=== PATIENT | male | born 1935 | race Two or more races ===

== ENCOUNTER 2019-04-27 19:59 | Inpatient (IN) | payer MEDICARE, OTHER ==
[~2019-04-27] VITALS: Ht 165.1 cm; Wt 78.2 kg
[2019-04-27 21:57] VITALS: BP 139/89
--- NOTE | 2019-04-27 21:57 | NUR ---
TEL RN OPENING NOTES: RECEIVED PT FROM [place] AND IS ON ROOM AIR AND TOLERATING WELL. PT IS CENTRAL AFRICAN SPEAKING ONLY. PT HAS IV ON L FOREARM #20G AND IS PATENT AND INTACT. CURRENTLY H/L. PT PLACED ON BED AND BED KEPT IN LOW, LOCKED POSITION, AND SIDE RAILS X 2UP. PT TO BE PLACED ON TELE BOX. NO SOB NOTED. NO S/S OF DISTRESS.
--- NOTE | 2019-04-27 22:30 | NUR ---
SAMPLER AND TEST PREPARER NOTES: ERIN CORRALATOR AT BEDSIDE.
[2019-04-27] MEDS ORDERED: ATOR10TA PO (22:55)
[2019-04-27] MEDS ORDERED: HYDR12.5 PO (22:55)
[2019-04-27] MEDS ORDERED: PROP10TA10 PO (22:55)
[2019-04-27] MEDS ORDERED: ASPI-869 PO (22:55)
[2019-04-27] MEDS ORDERED: DONE5TAB34 PO (22:55)
[2019-04-27] MEDS ORDERED: MELO-107 PO (22:55)
[2019-04-27] MEDS ORDERED: EZET10TA16 PO (22:55)
[2019-04-27] MEDS ORDERED: OMEP40CA37 PO (22:55)
[2019-04-27] MEDS ORDERED: METO25TA6 PO (22:55)
[2019-04-27] MEDS ORDERED: MECL-102 PO (22:55)
[2019-04-27] MEDS ORDERED: RAMI5CAP66 PO (22:55)
--- NOTE | 2019-04-27 23:50 | NUR ---
PSYCHIATRIC AIDE NOTES: DR. WILD AT BEDSIDE.
[2019-04-28] VITALS (7 sets, daily range): BP systolic 85–135; BP diastolic 49–86
[2019-04-28] MEDS: IV NS 0.9% 1,000 ML IV PRN ×2 (00:25→18:13)
[2019-04-28] MEDS ORDERED: MAG HYDROX/AL HYDROX/SIMETH 30 ML UDC PO PRN (00:30)
[2019-04-28] MEDS ORDERED: ACETAMINOPHEN 325 MG TABLET PO PRN (00:30)
[2019-04-28] MEDS ORDERED: ONDANSETRON HCL/PF 4 MG/2 ML VIAL IVP PRN (00:30)
[2019-04-28] MEDS ORDERED: HYDROCODONE/APAP 5/325MG 1 EACH TABLET PO PRN (00:30)
[2019-04-28] MEDS ORDERED: MAGNESIUM HYDROXIDE 30 ML UDC PO PRN (00:30)
[2019-04-28] MEDS ORDERED: Z GUARD REMEDY 2 OZ OINT TP PRN (00:30)
[2019-04-28 00:43] LABS: BASOPHILS % (AUTO) 0.4 % (0.0-2.0); EOSINOPHILS % (AUTO) 0.9 % (0.0-6.0); HEMATOCRIT 46 % (39-51); HEMOGLOBIN 16.1 g/dL (13.5-17.5); LYMPHOCYTES # (AUTO) 0.9 /CMM (0.8-4.8); LYMPHOCYTES % (AUTO) 10.2 % (20.0-44.0); MEAN CORPUSCULAR HGB CONC 35 g/dl (31.0-36.0); MEAN CORPUSCULAR VOLUME 84 fL (80-96); MONOCYTES # (AUTO) 0.8 /CMM (0.1-1.30); NEUTROPHILS # (AUTO) 6.7 /CMM (1.8-8.9); NEUTROPHILS % (AUTO) 79.5 % (43.0-81.0); PLATELET COUNT (AUTO) 223 /CMM (150-450); RED BLOOD CELL COUNT(AUTO) 5.52 MIL/uL (4.5-6.0); WHITE BLOOD COUNT (AUTO) 8.4 K/uL (4.3-11.0)
[2019-04-28 00:52] LABS: CALCIUM, SERUM 8.5 mg/dL (8.5-10.1); CARBON DIOXIDE 29 mmol/L (21-32); CHLORIDE 103 mmol/L (98-107); CREATININE 0.8 mg/dL (0.6-1.3); GLUCOSE 96 mg/dL (74-106); POTASSIUM 4.2 mmol/L (3.5-5.1); SODIUM SERUM 142 mmol/L (136-145); UREA NITROGEN, BLOOD 23 mg/dL (7-18)
[2019-04-28 01:07] LABS: CREATINE KINASE, TOTAL 2523 U/L (39-308)
[2019-04-28] MEDS ORDERED: METF-440 PO (02:04)
--- NOTE | 2019-04-28 02:07 | NUR ---
BEND SORTER NOTES: NOTIFIED DR. WILD ABOUT TROPONIN 0.114 AND TOTAL CK 2523 ; MADE ALEJANDRO; NO NEW ORDERS IN REGARDS TO THAT. INFORMED HIM THAT METFORMIN 500MG PO BID AND THAT PT IS DIABETIC. OK TO ORDER MILD SLIDING SCALE WITH ACCUCHEKS.
[2019-04-28] MEDS ORDERED: DEXTROSE 50%-WATER 50 ML DISP.SYRIN IV PRN (02:30)
[2019-04-28] MEDS ORDERED: SILV20CR13 TP (02:31)
[2019-04-28] MEDS ORDERED: ESCI10TA PO (02:31)
[2019-04-28] MEDS ORDERED: TAMS-12 PO (02:31)
[2019-04-28] MEDS ORDERED: LINA145C PO (02:31)
[2019-04-28] MEDS ORDERED: APIX5TAB PO (02:31)
[2019-04-28] MEDS ORDERED: GABA-532 PO (02:31)
[2019-04-28] MEDS: BLOOD SUGAR DIAGNOSTIC 1 EACH STRIP IN SCH ×4 (06:30→22:34)
--- NOTE | 2019-04-28 06:56 | NUR ---
BARRATTE OPERATOR CLOSING NOTES: ALL NEEDS WERE ATTENDED AND ANTICIPATED FOR. PT ON ROOM AIR AND TOLERATING WELL. PT ASLEEP AT THIS TIME AND RESTING COMFORTABLY. PT ON TELE MONITOR AND READING SHOWS SR 77 WITH PVCS. PT HAS IV ON L FOREARM #20G AND IS BEING INFUSED WITH IV NS AT 75ML/HR. BED ALARM ACTIVATED. BLOOD SUGAR THIS AM WAS 128. NO INSULIN WAS ADMINISTERED. BED KEPT IN LOW, LOCKED POSITION, AND SIDE RAILS X 2UP. WILL ENDORSE TO AM NURSE FOR KELLI.
--- NOTE | 2019-04-28 08:00 | NUR ---
RN NOTES RECEIVED PATIENT IN THE BED A/O X2/3 SWEDISH SPEAKER MALE. PATIENT TELE HR- 77, NO ACUTE RESPIRATORY DISTRESS, WAS COMPLAINING OF PAIN LOWER LOWER LEGS. V/S TAKEN BP -90/49 HELD BP MEDICATION. ADMINISTERED SCHEDULED MEDICATION. ENCOURAGED TO EXPRESS FEELINGS AND CONCERNS. SEEN PATIENT BY JAVASCRIPT APPLICATION DEVELOPER Dr PETERS. PATIENT HAS A MULTIPLE BRUISES, AND SCABS. AND WOUNDS SACRAL AREA, AND RIGHT UPPER SHOULDER. IN ACCESS ON LEFT FA INFUSING NS AT 75 ML./R INTACT. PATIENT UNABLE TO AMBULATED, ASSIST TURN AND REPOSTION Q 2 HR, INCONTINENT, USING URINAL. CALL LIGHT WITHIN TO REACH. SAFETY PRECAUTION MAINTAINED ALL THE TIME.
[2019-04-28] MEDS: HYDROCHLOROTHIAZIDE 25 MG TABLET PO SCH (09:00)
[2019-04-28] MEDS ORDERED: HYDROCHLOROTHIAZIDE 12.5 MG CAPSULE PO SCH (09:00)
[2019-04-28] MEDS: METOPROLOL TARTRATE 25 MG TABLET PO SCH (09:00)
[2019-04-28] MEDS: RAMIPRIL 5 MG CAPSULE PO SCH (09:00)
[2019-04-28] MEDS ORDERED: ASPIRIN EC 325 MG TABLET.DR PO SCH (09:00)
[2019-04-28 09:06] LABS: THYROID STIMULATING HORMONE 1.11 uIU/mL (0.358-3.74)
[2019-04-28 09:07] LABS: MAGNESIUM 2.3 mg/dL (1.8-2.4)
[2019-04-28] MEDS: ATORVASTATIN 10 MG TABLET PO SCH (09:39)
[2019-04-28] MEDS: EZETIMIBE 10 MG TABLET PO SCH (09:40)
[2019-04-28] MEDS: ASPIRIN 81 MG TAB.CHEW PO SCH (09:40)
[2019-04-28] MEDS: PANTOPRAZOLE 40 MG TABLET.DR PO SCH (09:41)
[2019-04-28] MEDS: DONEPEZIL 5 MG TABLET PO SCH (09:41)
[2019-04-28] MEDS: MECLIZINE HCL 25 MG TABLET PO SCH (09:54)
--- NOTE | 2019-04-28 09:59 | NUR ---
rn notes administered narco 5/325 mg po prn for lower bilateral legs pain /10 per patient request, v/s taken bp 95/50, p-58, continued monitoring.
--- NOTE | 2019-04-28 11:00 | NUR ---
RN NOTES SEEN PATIENT BY WOUND NURSE, HOSPITALIST, AND WOUND MD. NEEDS ATTENDED AND ANTICIPATED, FRIENDS NEXT TO THE BED, SAFETY PRECAUTION MAINTAINED ALL THE TIME.
--- NOTE | 2019-04-28 11:56 | NUR ---
WOUND CARE CONSULT: PT PRESENTS WITH MULTIPLE SKIN ISSUES INCLUDING DRY ESCHARS TO LEGS AND RT ANTERIOR ANKLE, DISCOLORATION TO RT LOWER LEG, DEEP TISSUE INJURIES TO BACK, SACRUM AND SHOULDER AREAS, ALL PRESENT ON ADMISSION. DPM CONSULT REQUEST PLACED. DR TOURE AWARE OF CONSULT REQUEST. RECOMMENDATIONS MADE FOR WOUND CARE AND SKIN PROTECTION. DISCUSSED WITH NURSING STAFF. DEFER TO DPM FOR LOWER EXTREMITIES. [facility] WILL SEE PRN. IN AGREEMENT WITH PLAN OF CARE. CURRENT KELLY SCORE IS 16. Addendum: 04/28/19 at 1159 by BIGG ROBERTSON WNDNU Amended: Links added.
--- NOTE | 2019-04-28 12:00 | NUR ---
RN NOTES BS-131 MG/DL COVERAGE GIVEN, SEEN PATIENT BY PT, PATIENT STAND UP BY HELP OF PT , AND REFUSED TO AMBULATE, ASSISTED PATIENT BACK TO THE BED BY PT. PATIENT TOLERATED LUNCH 75%.
[2019-04-28] MEDS: APIXABAN 5 MG TABLET PO SCH ×2 (13:20→18:01)
[2019-04-28] MEDS: INSULIN REGULAR, HUMAN 100 UNIT/ML 3 ML VIAL SQ PRN ×2 (13:29→18:07)
--- NOTE | 2019-04-28 18:30 | NUR ---
RN NOTES BS-163 MG/DL COVERAGE GIVEN, ALSO ADMINISTERED SCHEDULED MEDICATION, V/S STABLE, ASSIST PATIENT TURN AND REPOSTION Q 2 HR. INFUSING NS AT 75 ML/HR ON LEFT FA INTACT, CALL LIGHT WITHIN TO REACH, ENDORSED ONCOMING NURSE FOLLOW PLAN OF CARE.
--- NOTE | 2019-04-28 19:42 | NUR ---
SPLICING SUPERVISOR OPENING NOTES RECEIVED PT IN BED, AWAKE ALERT ORIENTED X3, [place]/ NORTH KOREAN SPEAKING ONLY. BREATHING EVEN AND UNLABORED ON ROOM AIR. NO COMPLAINT OF PAIN OR DISCOMFORT AT THIS TIME. IV ACCESS ON THE L RA 20G WITH 75ML/HR. PATIENT REPOSITIONED AND CLEANED, URINE SAMPLE COLLECTED. BED IN LOWEST LOCKED POSITION, CALL LIGHT WITHIN REACH AT ALL TIMES. WILL CONTINUE TO MONITOR FREQUENTLY
[2019-04-28 22:10] LABS: APPEARANCE,URINE CLEAR (CLEAR); BILIRUBIN,URINE NEGATIVE (NEGATIVE); BLOOD, URINE 1+ Ery/uL (NEGATIVE); COLOR,URINE DARK YELLO (YELLOW); KETONES,URINE NEGATIVE (NEGATIVE); LEUKOCYTE ESTERASE ,URINE NEGATIVE (NEGATIVE); NITRITE, URINE NEGATIVE (NEGATIVE); PROTEIN,URINE NEGATIVE (NEGATIVE); UGLUCOSE NEGATIVE (NEGATIVE)
[2019-04-28 22:18] LABS: BACTERIA,URINE None seen /HPF (None Seen); CALCIUM OXALATE CRYSTALS,UR Few /HPF (None Seen); RBC,URINE 0-2 /HPF (0-2); SQUAMOUS EPITHELIAL CELL,UR Rare /HPF (None Seen)
[2019-04-28 22:19] LABS: MUCUS,URINE Rare /LPF (None Seen)
[2019-04-29 00:39] VITALS: BP 127/56
[2019-04-29 04:30] VITALS: BP 116/60
--- NOTE | 2019-04-29 06:00 | NUR ---
CLINICAL TRAINING SPECIALIST CLOSING NOTES PT REMAINS IN BED, SLEEPING, EASILY AROUSED TO NAME CALL. BREATHING EVEN AND UNLABORED ON ROOM AIR. IN NO APPARENT PAIN OR DISCOMFORT AT THIS TIME. IV ACCESS ON THE L RA 20G WITH 75ML/HR. NO CHANGE IN CONDITION. BED IN LOWEST LOCKED POSITION, CALL LIGHT WITHIN REACH AT ALL TIMES. WILL ENDORSE TO DAY NURSE FOR KELLI
[2019-04-29 06:16] LABS: BASOPHILS % (AUTO) 0.4 % (0.0-2.0); EOSINOPHILS % (AUTO) 1.5 % (0.0-6.0); HEMATOCRIT 40 % (39-51); HEMOGLOBIN 13.7 g/dL (13.5-17.5); LYMPHOCYTES # (AUTO) 0.9 /CMM (0.8-4.8); LYMPHOCYTES % (AUTO) 14.3 % (20.0-44.0); MEAN CORPUSCULAR HGB CONC 34 g/dl (31.0-36.0); MEAN CORPUSCULAR VOLUME 84 fL (80-96); MONOCYTES # (AUTO) 0.5 /CMM (0.1-1.30); MONOCYTES % (AUTO) 8.4 % (2.0-12.0); NEUTROPHILS # (AUTO) 4.6 /CMM (1.8-8.9); NEUTROPHILS % (AUTO) 75.4 % (43.0-81.0); PLATELET COUNT (AUTO) 187 /CMM (150-450); RED BLOOD CELL COUNT(AUTO) 4.75 MIL/uL (4.5-6.0); WHITE BLOOD COUNT (AUTO) 6.1 K/uL (4.3-11.0)
[2019-04-29] MEDS: BLOOD SUGAR DIAGNOSTIC 1 EACH STRIP IN SCH ×4 (06:30→21:48)
[2019-04-29] MEDS: INSULIN REGULAR, HUMAN 100 UNIT/ML 3 ML VIAL SQ PRN (06:31)
[2019-04-29 06:44] LABS: CALCIUM, SERUM 7.8 mg/dL (8.5-10.1); CREATININE 0.7 mg/dL (0.6-1.3); MAGNESIUM 1.9 mg/dL (1.8-2.4); PHOSPHORUS 3.3 mg/dL (2.5-4.9); POTASSIUM 3.5 mmol/L (3.5-5.1)
--- NOTE | 2019-04-29 07:00 | NUR ---
RN AM SHIFT NOTE PATIENT IN BED AWAKE AND ALERT NO SIGNS OF DISTRESS AT THIS TIME. NO COMPOLAINTS OF PAIN. VITALS WNL. FAMILY FRIEND AT BEDSIDE AND PATIENT IS EATING AND DRINKING WELL. BED IN LOW POSITION SIDE RAILS UP, SAFETY MEASURES IN PLACE. CONTINUE TO MONITOR.
[2019-04-29 07:30] VITALS: BP 112/58
[2019-04-29] MEDS: DONEPEZIL 5 MG TABLET PO SCH (08:05)
[2019-04-29] MEDS: PANTOPRAZOLE 40 MG TABLET.DR PO SCH (08:05)
[2019-04-29] MEDS: MECLIZINE HCL 25 MG TABLET PO SCH (08:05)
[2019-04-29] MEDS: HYDROCHLOROTHIAZIDE 25 MG TABLET PO SCH (08:06)
[2019-04-29] MEDS: EZETIMIBE 10 MG TABLET PO SCH (08:06)
[2019-04-29] MEDS: ATORVASTATIN 10 MG TABLET PO SCH (08:06)
[2019-04-29] MEDS: METOPROLOL TARTRATE 25 MG TABLET PO SCH (08:07)
[2019-04-29] MEDS: RAMIPRIL 5 MG CAPSULE PO SCH (09:00)
--- NOTE | 2019-04-29 09:10 | NUR ---
RN NON ADMIN MED NOTE DIASTOLIC BP 59 , DID NOT ADMINISTER BP ALTACE PER MD PARAMATERS.
[2019-04-29] MEDS: ASPIRIN 81 MG TAB.CHEW PO SCH (09:13)
[2019-04-29] MEDS: APIXABAN 5 MG TABLET PO SCH ×2 (09:40→17:24)
[2019-04-29] MEDS: IV NS 0.9% 1,000 ML IV PRN (12:29)
--- NOTE | 2019-04-29 12:30 | NUR ---
RN NOTE FAMILY FAMILY AT BEDSIDE RN TOLD THEM DO NOT FEED PATIENT SOLID FOOD. FAMILY WAS INSISTING JUST THIS ONCE. RN INFORMED THEM PATIENT MAY ASPIRATE AND CHOKE OR GET INFECTION, DO NOT FEED OUTSIDE FOOD. NON COMPLIANT AT RISK FOR ASPIRATION.
--- NOTE | 2019-04-29 12:53 | NUR ---
Social service consult requested by wound ELTON Munoz for possible self-neglect and pt. having multiple wounds. Pt. is a 83 year old male who was admitted to [facility] for Rhabdomyolysis and elevated troponin. ALFA met with pt. bedside. Pt. is Spanish speaking. Pt's friend Noah was bedside. executive secretary social welfare assisted ALFA in translation. Pt. is alert and oriented x 3. Pt. lives alone at [address] in [place]. [place]. Pt. states he has no family here in [place]. His family is in [facility] and come to visit him when they are in [place]. Pt. states he receives IHSS but was not able to state how many hours per month. Pt's caregiver comes a few times a week. Pt. is taken to his doctor appointments by his caregiver. Per wound ELTON Munoz pt. has a lot of wounds and appears to not care for himself well. manager of drilling to refer pt. to SNF if pt. is deemed appropriate and will accept to go. ALFA to file APS for self-neglect and safety concerns. Pt. states he has a wheelchair and walker at home. No other social service needs are requested at this time. SW is available, if needed. Addendum: 04/29/19 at 1309 by NAE GRIMM ALFA filed APS report for self-neglect and multiple wounds. PS intake ID #[id number].
[2019-04-29 16:00] VITALS: BP 123/85
--- NOTE | 2019-04-29 18:35 | NUR ---
RN CLOSING NOTE PATIENT IN BED ALERT AND ORIENTED GIO KHAN SPEAKING. IN GOOD SPIRIRTS AND PARTICIPATING IN HIS CARE. VITALS WNL IV PATENT AND FLUSHING NO INFILTRATION. BED IN LOW POSITION CALL LIGHT WITHIN REACH. PATIENT IS EATING WELL ON HIS OWN, SITTING UP AND NO ISSUES WITH ASPIRATION AT THIS TIME. CONTINUE HOSPITALIZATION
--- NOTE | 2019-04-29 19:00 | NUR ---
REGISTERED DENTAL ASSISTANT NOTE RECEIVED PT IN STABLE CONDITION A/O X3 LAO SPEAKING, UNDERSTANDS LITTLE TAIWANESE, CURRENTLY IN BED WATCHING TV. NO SIGNS OF SOB OR DISTRESS NO INDICATIONS OF PAIN, N/V. IV IN L RA #[address] WITH IVF INFUSING, TOLERATING WELL. ALL CURRENT NEEDS ATTENDED TO. BED LOW, LOCKED, UPPER RAILS UP, AND CALL LIGHT WITHIN REACH, WILL CONT TO MONITOR AND REPOSITION PT PER PROTOCOL.
[2019-04-29 20:00] VITALS: BP 131/80
[2019-04-30] MEDS: IV NS 0.9% 1,000 ML IV PRN (04:28)
--- NOTE | 2019-04-30 06:14 | NUR ---
MS RN NOTE PT IN STABLE CONDITION A/O [id number] IN BED, RESTING, EASILY RESPONDS TO NAME. NO SIGNS OF SOB OR DISTRESS NO INDICATIONS OF PAIN, N/V. IV IN L RA #[address] WITH IVF INFUSING, TOLERATING WELL. ALL CURRENT NEEDS ATTENDED TO. BED LOW, LOCKED, UPPER RAILS UP, AND CALL LIGHT WITHIN REACH, WILL CONT TO MONITOR AND REPOSITIONED PT PER PROTOCOL. WILL ENDORSE TO NEXT SHIFT FOR KELLI.
[2019-04-30 06:29] LABS: BASOPHILS % (AUTO) 0.3 % (0.0-2.0); EOSINOPHILS % (AUTO) 1.7 % (0.0-6.0); HEMATOCRIT 39 % (39-51); HEMOGLOBIN 13.5 g/dL (13.5-17.5); LYMPHOCYTES # (AUTO) 0.9 /CMM (0.8-4.8); LYMPHOCYTES % (AUTO) 14.1 % (20.0-44.0); MEAN CORPUSCULAR HGB CONC 34 g/dl (31.0-36.0); MEAN CORPUSCULAR VOLUME 84 fL (80-96); MONOCYTES # (AUTO) 0.7 /CMM (0.1-1.30); MONOCYTES % (AUTO) 10.5 % (2.0-12.0); NEUTROPHILS # (AUTO) 4.6 /CMM (1.8-8.9); NEUTROPHILS % (AUTO) 73.4 % (43.0-81.0); PLATELET COUNT (AUTO) 186 /CMM (150-450); RED BLOOD CELL COUNT(AUTO) 4.68 MIL/uL (4.5-6.0); WHITE BLOOD COUNT (AUTO) 6.3 K/uL (4.3-11.0)
[2019-04-30 06:39] LABS: CALCIUM, SERUM 8.1 mg/dL (8.5-10.1); CREATININE 0.7 mg/dL (0.6-1.3); POTASSIUM 3.7 mmol/L (3.5-5.1)
[2019-04-30] MEDS: BLOOD SUGAR DIAGNOSTIC 1 EACH STRIP IN SCH ×2 (07:32→13:06)
[2019-04-30] MEDS: PANTOPRAZOLE 40 MG TABLET.DR PO SCH (07:36)
--- NOTE | 2019-04-30 07:50 | NUR ---
M/S RN NOTES PATIENT RESTING, LYING IN BED. NO RESPIRATORY DISTRESS NOTED. NO C/O PAIN AT THIS TIME. IV NS RUNNING AT 75ML/HR ON THE LT ARM #20G, INTACT AND PATENT. PATIENT'S NEEDS ATTENDED. BED ON LOWEST LOCKED POSITION, CALL LIGHT WITHIN REACH. WILL CONTINUE TO MONITOR.
[2019-04-30 08:00] VITALS: BP 123/87
[2019-04-30] MEDS: EZETIMIBE 10 MG TABLET PO SCH (09:29)
[2019-04-30] MEDS: ASPIRIN 81 MG TAB.CHEW PO SCH (09:30)
[2019-04-30] MEDS: HYDROCHLOROTHIAZIDE 25 MG TABLET PO SCH (09:30)
[2019-04-30] MEDS: RAMIPRIL 5 MG CAPSULE PO SCH (09:30)
[2019-04-30] MEDS: ATORVASTATIN 10 MG TABLET PO SCH (09:30)
[2019-04-30] MEDS: DONEPEZIL 5 MG TABLET PO SCH (09:30)
[2019-04-30 09:31] VITALS: BP 123/87
[2019-04-30] MEDS: MECLIZINE HCL 25 MG TABLET PO SCH (09:31)
[2019-04-30] MEDS: APIXABAN 5 MG TABLET PO SCH (09:31)
[2019-04-30] MEDS: METOPROLOL TARTRATE 25 MG TABLET PO SCH (09:31)
[2019-04-30] MEDS: INSULIN REGULAR, HUMAN 100 UNIT/ML 3 ML VIAL SQ PRN (13:08)
--- NOTE | 2019-04-30 16:20 | NUR ---
M/S RN NOTES PATIENT DISCHARGED IN STABLE CONDITION, REPORT GIVEN TO ELTON VILA AT [facility]. PATIENT GIVEN DISCHARGE INSTRUCTIONS, VERBALIZED UNDERSTANDING. PATIENT'S SKIN ASSESSED AND PHOTOS TAKEN. PATIENT'S IV REMOVED AND APPLIED PRESSURE DRESSING. PATIENT'S BELONGINGS ACCOUNTED FOR AND SIGNED, GAVE BELONGINGS TO FAMILY AT BEDSIDE. PATIENT LEFT VIA GURNEY WITH PARAMEDICS.
== END 2019-04-30 16:10 | DRG 557 ==
LOC: TELE 21:50 → MED 04-29 21:45
PROVIDERS: ADMIT Internal Medicine; ATTEND Registered Nurse
DX: M62.82 Rhabdomyolysis (principal); I21.A1 Myocardial infarction type 2; G92 Toxic encephalopathy; I69.354 Hemiplegia and hemiparesis following cerebral infarction affecting left non-dominant side; I10 Essential (primary) hypertension; I25.10 Atherosclerotic heart disease of native coronary artery without angina pectoris; Z95.1 Presence of aortocoronary bypass graft; F03.90 Unspecified dementia, unspecified severity, without behavioral disturbance, psychotic disturbance, mood disturbance, and anxiety; W18.2XXA Fall in (into) shower or empty bathtub, initial encounter; S90.511A Abrasion, right ankle, initial encounter; S80.811A Abrasion, right lower leg, initial encounter; Y93.89 Activity, other specified; Y92.002 Bathroom of unspecified non-institutional (private) residence as the place of occurrence of the external cause
CPT/HCPCS: 36415; 71045-TC; 80048-TC; 80061-TC; 81000-TC; 82550-TC; 82962-TC; 83735-TC; 84100-TC; 84439-TC; 84443-TC; 84484-TC; 85025-TC; 87081-TC; 93307-TC; 97112-TC; 97530-TC; G0378; J1815; J7030; J8597